=== PATIENT | female | born 1990 | race Caucasian/White ===

== ENCOUNTER 2018-01-18 14:25 | Emergency (ER) | payer SELFPAY, OTHER ==
[2018-01-18] MEDS: TETRACAINE 0.5% 4 ML OPH BOTH EYES (15:08)
[2018-01-18] MEDS: FLUORESCEIN STRIP BOTH EYES (15:08)
== END 2018-01-18 15:36 | disposition home or self-care (01) ==
LOC: FTE 14:25
DX: S05.01XA Injury of conjunctiva and corneal abrasion without foreign body, right eye, initial encounter (principal); S05.02XA Injury of conjunctiva and corneal abrasion without foreign body, left eye, initial encounter; X58.XXXA Exposure to other specified factors, initial encounter; Y92.9 Unspecified place or not applicable
CPT/HCPCS: 99283